=== PATIENT | female | born 1985 | race American Indian/Alaskan Native ===

== ENCOUNTER 2021-12-24 18:28 | Emergency (ER) | payer SELFPAY ==
[2021-12-24 18:40] VITALS: BP 137/86
== END 2021-12-24 20:40 | disposition left against medical advice (07) ==
LOC: ED 18:28
DX: J02.9 Acute pharyngitis, unspecified (principal); Z53.21 Procedure and treatment not carried out due to patient leaving prior to being seen by health care provider